=== PATIENT | female | born 1955 | race Caucasian/White ===

== ENCOUNTER → 2019-10-16 | Emergency (ER) | payer OTHER ==
[~2019-10-16] VITALS: Ht 160 cm; Wt 68.0 kg
[~2019-10-16] MED LIST: COZAAR100 MG; LOSARTAN-HCTZ1 EAC1; NORVASC5 MG; SYNTHROID50 MCG; TOPROL XL100 MG
== END | disposition home or self-care (01) ==
LOC: ER 04:36
DX: J02.9 Acute pharyngitis, unspecified (principal)

== ENCOUNTER 2021-01-08 08:32 | Outpatient (CLI) | payer OTHER | END 2021-01-08 08:38 | disposition home or self-care (01) | LOC: SONOGRAMA 08:32 | PROVIDERS: ATTEND Pathology Anatomic Pathology | DX: R59.0 Localized enlarged lymph nodes (principal) ==

== ENCOUNTER 2021-12-02 19:38 | Inpatient (IN) | payer OTHER ==
[~2021-12-02] VITALS: Ht 157.5 cm; Wt 65.8 kg
[2021-12-02] MEDS ORDERED: VALSARTAN80 MG (20:04)
[2021-12-02] MEDS ORDERED: ESCITALOPRA5 MG/5 ML (20:05)
--- NOTE | 2021-12-02 20:07 | NUR ---
SE RECIBE TPE ALERTA Y ORIENTADA X3 LA CUAL REFIERE VENIR POR CAIDA QUE SUFRIO EN [place]. PTE REFIERE DOLOR EN BRAZO Y PIERNA IZQUIERDA. SE MIDEN S/V A PTE Y SE COLOCA EN TA[place] DE ESPERA.
--- NOTE | 2021-12-02 22:22 | NUR ---
SE ORIENTA PTE SOBRE TX MEDICO EL CUAL REFIERE ENTENDER.SE LE ADMINISTRA MEDICAMENTOS BAJO MEDIDAS ASEPTICAS Y ISMA ORDEN MEDICA.SE NOTIFICA PLACA PENDIENTE.
--- NOTE | 2021-12-03 07:39 | NUR ---
PACIENTE SE RECIBE ALERTA, CONMCIENTE Y ORIENTADA X3 AL MOMENTO EN ESPERA DE CONSULTA CON DR. TELLEZ. PACIENTE AL MOMENTO ESTABLE, Y EN OBSERVACION LILIANE.
[2021-12-03] MEDS ORDERED: EZETIMIBE10 MG (11:50)
[2021-12-03] MEDS ORDERED: SULINDAC200 MG (11:51)
[2021-12-03] MEDS ORDERED: ESTAZOLAM2 MG (11:51)
[2021-12-03] MEDS ORDERED: VITAMIN D3250 MCG (11:51)
[2021-12-03] MEDS ORDERED: VALSARTAN-HCTZ1 EAC1 (11:51)
[2021-12-03] MEDS ORDERED: CLONAZEPAM0.5 MG (11:51)
[2021-12-03] MEDS ORDERED: ZANAFLEX2 MG (11:51)
[2021-12-03] MEDS ORDERED: ROSUVASTATIN CA10 MG (11:51)
== END 2021-12-06 18:27 | DRG 481 ==
LOC: ER 19:38 → SEC-K 12-03 08:07 → SURH 12-03 08:07
PROVIDERS: ADMIT Orthopaedic Surgery; ATTEND Orthopaedic Surgery
PROC: 0QSC04Z Reposition Left Lower Femur with Internal Fixation Device, Open Approach (ICD-10-PCS; principal; 2021-12-04 16:00)
DX: S72.032A Displaced midcervical fracture of left femur, initial encounter for closed fracture (principal); D62 Acute posthemorrhagic anemia; M81.0 Age-related osteoporosis without current pathological fracture; M25.552 Pain in left hip; I10 Essential (primary) hypertension; E03.8 Other specified hypothyroidism; Z20.822 Contact with and (suspected) exposure to COVID-19